=== PATIENT | female | born 1955 | race African-American/Black ===

== ENCOUNTER 2017-02-08 11:58 | Emergency (ER) | payer OTHER ==
[2017-02-08 13:17] VITALS: BP 131/77
== END 2017-02-08 13:34 | disposition home or self-care (01) ==
LOC: ED 11:58
DX: R04.0 Epistaxis (principal); I10 Essential (primary) hypertension; E11.9 Type 2 diabetes mellitus without complications; E78.00 Pure hypercholesterolemia, unspecified; Z79.84 Long term (current) use of oral hypoglycemic drugs; Z79.899 Other long term (current) drug therapy